=== PATIENT | male | born 1965 ===

== ENCOUNTER 2017-06-21 14:39 | Emergency (ER) | payer SELFPAY ==
--- NOTE | 2017-06-21 15:29 | C.PDOC ---
History Of Present Illness <Arely Parker - Last Filed: 06/21/17 18:50> <Husam Bryant - Last Filed: 06/22/17 04:49> 52-year-old male, presents to the emergency department requesting place to rest. Patient is under the influence of alcohol. Denies any physical complaints at this time. (Arely Parker) History Per: Patient History/Exam Limitations: no limitations Onset/Duration Of Symptoms: Days Current Symptoms Are (Timing): Still Present <Arely Parker - Last Filed: 06/21/17 18:50> <Husam Bryant - Last Filed: 06/22/17 04:49> Time Seen by Provider: 06/21/17 15:17 Chief Complaint (Nursing): Substance Abuse Past Medical History Reviewed: Historical Data, Nursing Documentation, Vital Signs Family History: States: No Known Family Hx - Social History Hx Alcohol Use: Yes Hx Substance Use: No <Arely Parker - Last Filed: 06/21/17 18:50> Family History: States: No Known Family Hx <Husam Bryant - Last Filed: 06/22/17 04:49> Vital Signs: Last Vital Signs Temp 98.9 F 06/22/17 01:10 Pulse 89 06/22/17 04:09 Resp 18 06/22/17 04:09 BP 181/92 H 06/22/17 04:09 Pulse Ox 97 06/22/17 04:09 Review Of Systems Except As Marked, All Systems Reviewed And Found Negative. Constitutional: Negative for: Fever, Chills Respiratory: Negative for: Shortness of Breath Gastrointestinal: Negative for: Vomiting Neurological: Negative for: Weakness, Numbness Psych: Negative for: Suicidal ideation <Arely Parker - Last Filed: 06/21/17 18:50> Physical Exam - Physical Exam Appears: Non-toxic, No Acute Distress Skin: Warm, Dry, No Rash Head: Atraumatic, Normacephalic Eye(s): bilateral: Normal Inspection, PERRL Nose: Normal Oral Mucosa: Moist Lips: Normal Appearing Neck: Normal ROM Cardiovascular: Rhythm Regular, No Murmur Respiratory: Normal Breath Sounds, No Accessory Muscle Use Extremity: Normal ROM Neurological/Psych: Oriented x3, Normal Speech <Arely Parker - Last Filed: 06/21/17 18:50> ED Course And Treatment O2 Sat by Pulse Oximetry: 97 Pulse Ox Interpretation: Normal Reevaluation Time: 18:40 Reassessment Condition: Unchanged (PERSIST INTOX. NARD.) <Arely Parker - Last Filed: 06/21/17 18:50> Disposition - Disposition Disposition Time: 19:00 <Arely Parker - Last Filed: 06/21/17 18:50> Counseled Patient/Family Regarding: Studies Performed, Diagnosis, Need For Followup <Husam Bryant - Last Filed: 06/22/17 04:49> - Disposition Referrals: [facility] [Outside] Disposition: HOME/ ROUTINE Condition: FAIR Instructions: Alcohol Intoxication (DC) Forms: [employer] (Estonian) - Clinical Impression Clinical Impression: Alcohol intoxication - Scribe Statement The provider has reviewed the documentation as recorded by the Scribe (Nellie Toussaint) <Arely Parker - Last Filed: 06/21/17 18:50> <Husam Bryant - Last Filed: 06/22/17 04:49> - Scribe Statement All medical record entries made by the Scribe were at my direction and personally dictated by me. I have reviewed the chart and agree that the record accurately reflects my personal performance of the history, physical exam, medical decision making, and the department course for this patient. I have also personally directed, reviewed, and agree with the discharge instructions and disposition. (Arely Parker) Physician Patient Turnover Patient Signed Over To: Husam Bryant Handoff Comments: FU SOBRIETY, DISPO <Arely Parker - Last Filed: 06/21/17 18:50>
[2017-06-22 01:11] VITALS: PULSE 89; TEMP 98.9
[2017-06-22 04:11] VITALS: BP 181/92; RESP 18; O2SAT 97
== END 2017-06-22 04:53 | disposition home or self-care (01) ==
LOC: C.ER 14:39 → EDBD 14:39 → C.ER 06-22 04:53
DX: F10.129 Alcohol abuse with intoxication, unspecified (principal); Y90.9 Presence of alcohol in blood, level not specified